=== PATIENT | male | born 1990 | race Caucasian/White ===

== ENCOUNTER 2018-04-07 12:26 | Inpatient (IN) | payer OTHER ==
[~2018-04-07] VITALS: Ht 177.8 cm; Wt 92.2 kg
[2018-04-07 12:31] VITALS: Ht 177.8 cm; Wt 92.2 kg
[2018-04-07 14:32] LABS: BASOPHIL % 0.3 % (0-2); PLATELET COUNT 257 x10^3mcL (130-400); RED CELL DISTRIBUTION WIDTH 12.6 % (11.5-14.5)
[2018-04-07 14:39] LABS: CALCIUM 9.1 mg/dL (8.5-10.1); CARBON DIOXIDE 27.4 mmol/L (21-32); CHLORIDE SERUM 101 mmol/L (98-107); CREATININE SERUM 0.8 mg/dL (0.7-1.3); GFR1 > 60 mL/min; GLUCOSE SERUM 74 mg/dL (74-106); POTASSIUM SERUM 3.8 mmol/L (3.5-5.1); SODIUM SERUM 138 mmol/L (136-145)
[2018-04-07 14:43] LABS: ALBUMIN 3.7 g/dL (3.4-5.0); ALKALINE PHOSPHATASE 89 U/L (46-116); ALT/SGPT 89 U/L (16-63); AST/SGOT 34 U/L (15-37); BILIRUBIN TOTAL 1.1 mg/dL (0.20-1.00); TOTAL PROTEIN, SERUM 8.1 g/dL (6.4-8.2)
[2018-04-07 16:14] VITALS: BP 119/79
[2018-04-07 20:25] VITALS: BP 131/73
[2018-04-08 05:56] VITALS: BP 102/66
[2018-04-08 06:02] LABS: BASOPHIL % 0.3 % (0-2); PLATELET COUNT 250 x10^3mcL (130-400); RED CELL DISTRIBUTION WIDTH 12.8 % (11.5-14.5)
[2018-04-08 06:21] LABS: CALCIUM 8.4 mg/dL (8.5-10.1); CARBON DIOXIDE 25.2 mmol/L (21-32); CHLORIDE SERUM 103 mmol/L (98-107); CREATININE SERUM 0.9 mg/dL (0.7-1.3); GFR1 > 60 mL/min; GLUCOSE SERUM 104 mg/dL (74-106); POTASSIUM SERUM 3.9 mmol/L (3.5-5.1); SODIUM SERUM 138 mmol/L (136-145)
[2018-04-08 07:44] VITALS: BP 126/60
[2018-04-08 11:02] LABS: UA SPECIFIC GRAVITY >1.030 (1.005-1.035)
[2018-04-08 11:03] LABS: microscopic required? YES; urine erythrocyte TRACE (NEGATIVE)
[2018-04-08 11:17] VITALS: BP 132/71
[2018-04-08 11:58] VITALS: BP 131/62
[2018-04-08 18:33] VITALS: BP 131/77
[2018-04-08 20:40] VITALS: BP 140/99
[2018-04-09 05:42] VITALS: BP 107/65
[2018-04-09 06:16] LABS: BASOPHIL % 0.4 % (0-2); PLATELET COUNT 252 x10^3mcL (130-400)
[2018-04-09 06:22] LABS: CALCIUM 8.5 mg/dL (8.5-10.1); CARBON DIOXIDE 29.7 mmol/L (21-32); CHLORIDE SERUM 107 mmol/L (98-107); CREATININE SERUM 0.9 mg/dL (0.7-1.3); GFR1 > 60 mL/min; GLUCOSE SERUM 116 mg/dL (74-106); SODIUM SERUM 145 mmol/L (136-145)
[2018-04-09 09:20] VITALS: BP 125/83
[2018-04-09] MEDS ORDERED: NORCO1 TA2 PO (09:52)
[2018-04-09] MEDS ORDERED: CLINDAMYCIN HC300 MG PO (09:52)
[2018-04-09 11:11] VITALS: BP 125/83
== END 2018-04-09 13:30 | disposition home or self-care (01) | DRG 720 ==
LOC: ED 12:26 → MU 15:30
PROVIDERS: Emergency Medicine; Internal Medicine Pulmonary Disease; Surgery
PROC: 0W9M0ZZ Drainage of Male Perineum, Open Approach (ICD-10-PCS; principal; 2018-04-08 10:00)
DX: A41.9 Sepsis, unspecified organism (principal); F20.9 Schizophrenia, unspecified; L02.215 Cutaneous abscess of perineum; L03.315 Cellulitis of perineum; Z23 Encounter for immunization
CPT/HCPCS: 90658; J1650; J1885; J2001; J2250; J2543; J3010; J3490; J7030; J7040; Q0092

== ENCOUNTER 2018-04-16 20:27 | Emergency (ER) | payer OTHER ==
[~2018-04-16] VITALS: Ht 170.2 cm; Wt 92.1 kg
[~2018-04-16 20:27] MED LIST: CLINDAMYCIN HC300 MG PO; NORCO1 TA2 PO
[2018-04-16 20:48] VITALS: BP 143/91; Ht 170.2 cm; Wt 92.1 kg
== END 2018-04-16 20:52 | disposition left against medical advice (07) ==
LOC: ED 20:27
DX: Z53.21 Procedure and treatment not carried out due to patient leaving prior to being seen by health care provider (principal)

== ENCOUNTER 2018-05-18 14:24 | Emergency (ER) | payer OTHER ==
[~2018-05-18] VITALS: Ht 175.3 cm; Wt 90.3 kg
[2018-05-18 14:39] VITALS: BP 123/55; Ht 175.3 cm; Wt 90.3 kg
== END 2018-05-18 14:42 | disposition left against medical advice (07) ==
LOC: ED 14:24
DX: Z53.21 Procedure and treatment not carried out due to patient leaving prior to being seen by health care provider (principal)

== ENCOUNTER 2019-10-07 17:22 | Emergency (ER) | payer OTHER ==
[~2019-10-07] VITALS: Ht 182.9 cm; Wt 74.8 kg
[2019-10-07 17:36] VITALS: Ht 182.9 cm; Wt 74.8 kg
[2019-10-07 18:34] LABS: BASOPHIL % 0.5 % (0-2); PLATELET COUNT 285 x10^3mcL (130-400); RED CELL DISTRIBUTION WIDTH 13.5 % (11.5-14.5)
[2019-10-07 18:38] LABS: CALCIUM 9.4 mg/dL (8.5-10.1); CARBON DIOXIDE 30.2 mmol/L (21-32); CHLORIDE SERUM 104 mmol/L (98-107); CREATININE SERUM 0.7 mg/dL (0.7-1.3); GFR1 > 60 mL/min; GLUCOSE SERUM 75 mg/dL (74-106); SODIUM SERUM 141 mmol/L (136-145)
[2019-10-07 18:45] LABS: ALBUMIN 3.8 g/dL (3.4-5.0); ALKALINE PHOSPHATASE 88 U/L (46-116); ALT/SGPT 39 U/L (16-63); AST/SGOT 31 U/L (15-37); BILIRUBIN TOTAL 0.96 mg/dL (0.20-1.00); TOTAL PROTEIN, SERUM 7.5 g/dL (6.4-8.2)
[2019-10-07 19:29] LABS: microscopic required? NO
[2019-10-07 20:03] LABS: urine erythrocyte NEGATIVE (NEGATIVE)
[2019-10-07 20:14] LABS: AMPHETAMINE QUAL UR POSITIVE (See below)
[2019-10-07 21:26] VITALS: BP 124/81
== END 2019-10-07 21:26 | disposition home or self-care (01) ==
LOC: ED 17:22
PROVIDERS: Emergency Medicine
DX: F15.90 Other stimulant use, unspecified, uncomplicated (principal); R40.4 Transient alteration of awareness
CPT/HCPCS: 82962; G0480; J2060; Q0092

== ENCOUNTER 2020-09-15 16:34 | Emergency (ER) | payer OTHER ==
[~2020-09-15] VITALS: Ht 170.2 cm; Wt 77.1 kg
[2020-09-15 16:39] VITALS: BP 124/84; Ht 170.2 cm; Wt 77.1 kg
== END 2020-09-15 17:15 ==
LOC: ED 16:34
DX: Z02.89 Encounter for other administrative examinations (principal)